=== PATIENT | male | born 1940 | race Caucasian/White ===

== ENCOUNTER 2023-08-13 10:56 | Day surgery (SDC) | payer MEDICARE ==
[2023-08-12 12:57] VITALS: BMI 30.8
[2023-08-13] MEDS ORDERED: Lidocaine 1% PF 5 ML VIAL ONE (14:40)
[2023-08-13] MEDS ORDERED: PROPOFOL 20 ML ONE (14:40)
== END 2023-08-13 17:00 | disposition home or self-care (01) ==
LOC: SDC 10:56
PROVIDERS: ATTEND Internal Medicine Gastroenterology
PROC: 0DB98ZX Excision of Duodenum, Via Natural or Artificial Opening Endoscopic, Diagnostic (ICD-10-PCS; principal; 2023-08-13)
PROC: 0DBK8ZZ Excision of Ascending Colon, Via Natural or Artificial Opening Endoscopic (ICD-10-PCS; 2023-08-13)
PROC: 0DBL8ZZ Excision of Transverse Colon, Via Natural or Artificial Opening Endoscopic (ICD-10-PCS; 2023-08-13)
DX: K63.5 Polyp of colon (principal); D50.9 Iron deficiency anemia, unspecified; K57.30 Diverticulosis of large intestine without perforation or abscess without bleeding; K64.8 Other hemorrhoids; K62.89 Other specified diseases of anus and rectum; I48.91 Unspecified atrial fibrillation; I11.0 Hypertensive heart disease with heart failure; I50.9 Heart failure, unspecified; G47.30 Sleep apnea, unspecified; E11.9 Type 2 diabetes mellitus without complications; E78.5 Hyperlipidemia, unspecified; Z95.0 Presence of cardiac pacemaker; Z98.890 Other specified postprocedural states; Z79.899 Other long term (current) drug therapy; Z87.891 Personal history of nicotine dependence; Z86.16 Personal history of COVID-19
CPT/HCPCS: 43239; 45380; 45385; J2704; 88305

== ENCOUNTER 2024-10-24 13:14 | Outpatient (CLI) | payer MEDICARE | END 2024-10-24 13:15 | disposition home or self-care (01) | LOC: BICRAD 13:14 | PROVIDERS: ATTEND Internal Medicine | DX: I50.30 Unspecified diastolic (congestive) heart failure (principal); I42.9 Cardiomyopathy, unspecified; R06.00 Dyspnea, unspecified; J90 Pleural effusion, not elsewhere classified | CPT/HCPCS: 71046 ==